=== PATIENT | male | born 1950 | race Caucasian/White ===

== ENCOUNTER 2017-07-14 05:43 | Day surgery (SDC) | payer MEDICARE, OTHER ==
[2017-07-14] MEDS ORDERED: DIPRIVAN 200 MG/20 ML IV ONE (05:44)
[2017-07-14] MEDS ORDERED: Ketamine HCl 50 MG/ML IV ONE (05:44)
[2017-07-14] MEDS ORDERED: Lactated Ringers 1,000 ML IV SCH (06:30)
[2017-07-14 08:36] VITALS: BP 141/95; PULSE 50; O2SAT 96
--- NOTE | 2017-07-14 09:08 | OP ---
SURGERY DATE/TIME: 07/14/2017 0717 PREOPERATIVE DIAGNOSIS: History of colon polyps. POSTOPERATIVE DIAGNOSIS: Sigmoid colon polyp and sigmoid diverticulosis. PROCEDURE: Colonoscopy with polypectomy. SURGEON: Dr. Sanon. ANESTHESIA: Medications were given by the anesthesia department. HISTORY: The patient is a 66 year old white male patient presenting now for endoscopic evaluation. He reports that he last had a colonoscopy five years ago. He did previously have colon polyps found and removed. The patient was appraised of the risks of the procedure including the risk of perforation, phlebitis, untoward reaction to medication, bleeding or missed lesions. The patient verbalized his understanding and desired to have the procedure performed. DESCRIPTION OF PROCEDURE: The patient was given the medications by the anesthesia department. He had continuous pulse oximetry, ECG monitoring, intermittent blood pressure monitoring and tidal CO2 monitoring during the examination. He was placed in left lateral decubitus position. A digital rectal examination was performed and revealed normal anal sphincter tone, no masses and an enlarged but smooth and otherwise normal prostate. The flexible Olympus pediatric colonoscope was used to intubate the rectum. A view of the colon was developed sequentially to the cecum. Upon insertion and withdrawal was noted sigmoid diverticulosis which was moderate in nature and small polyp measuring approximately 0.5 cm in size destroyed using cold biopsy technique. A larger polyp measuring approximately 1.5 cm that was pedunculated and removed with polypectomy snare and hot snare technique. The polyp was retrieved for pathologic evaluation. No other mucosal lesions being encountered the scope was removed from the patient who tolerated the procedure well and was sent back to OP recovery in good condition. The prep was noted to be fair to good.
== END 2017-07-14 08:58 | disposition home or self-care (01) ==
LOC: SDC 05:43
PROVIDERS: ATTEND Family Medicine
PROC: 0DBN8ZX Excision of Sigmoid Colon, Via Natural or Artificial Opening Endoscopic, Diagnostic (ICD-10-PCS; principal; 2017-07-14)
PROC: 0DBN8ZX Excision of Sigmoid Colon, Via Natural or Artificial Opening Endoscopic, Diagnostic (ICD-10-PCS; 2017-07-14)
DX: K63.5 Polyp of colon (principal); Z86.010 Personal history of colon polyps; K57.30 Diverticulosis of large intestine without perforation or abscess without bleeding; I10 Essential (primary) hypertension; E78.5 Hyperlipidemia, unspecified
CPT/HCPCS: 00810; 88305; J2704

== ENCOUNTER 2018-10-16 15:55 | Emergency (ER) | payer MEDICARE, OTHER ==
--- NOTE | 2018-10-16 16:16 | ERPHSYRPT ---
- History of Present Illness Time Seen by Provider: 10/16/18 16:05 Historian: patient Exam Limitations: no limitations Physician History: 68 y/o diabetic white male with htn presents with 1 week h/o intermittent substernal cp with exertional soa. cp is nonradiating. never had this before. denies abd pain. pt with h/o left upper ext dvt no longer on anticoag tx. pt has sister with h/o dvt Timing/Duration: week(s) (1) Quality: pressure Location: substernal Chest Pain Radiation: no radiation Severity of Pain-Max: mild Severity of Pain-Current: mild Modifying Factors: Improves With: exertion (usually resolves with rest) Associated Symptoms: denies symptoms Prior Chest Pain/Cardiac Workup: no prior chest pain Nitro Today/Relief: no nitro taken today Aspirin Treatment Today: 325 mg x 1 Allergies/Adverse Reactions: No Known Drug Allergies Allergy (Verified 10/16/18 16:18) Home Medications: Amlodipine Besylate/Benazepril [Lotrel 10-20 mg Capsule] 0 mg PO DAILY 05/31/12 [History] Aspirin EC 325 mg [Ecotrin 325 MG] 325 mg PO DAILY 05/31/12 [History] Multivitamin [Multivitamins] 1 tab PO DAILY 05/31/12 [History] Lisinopril 40 mg PO DAILY 10/16/18 [History] Sitagliptin Phos/Metformin HCl [Janumet 50-1,000 mg Tablet] 1 each PO BID [History] Tamsulosin HCl 0.4 mg [Flomax 0.4 MG] 0.4 mg PO DAILY 10/16/18 [History] Hx Tetanus, Diphtheria Vaccination/Date Given: No Hx Influenza Vaccination/Date Given: No Hx Pneumococcal Vaccination/Date Given: No - Review of Systems Constitutional: No Symptoms Eyes: No Symptoms Ears, Nose, & Throat: No Symptoms Respiratory: Dyspnea on Exertion (BARRERA) Cardiac: Chest Pain Abdominal/Gastrointestinal: No Symptoms Genitourinary Symptoms: No Symptoms Musculoskeletal: No Symptoms Skin: No Symptoms Neurological: No Symptoms Psychological: No Symptoms Endocrine: No Symptoms Hematologic/Lymphatic: No Symptoms Immunological/Allergic: No Symptoms All Other Systems: Reviewed and Negative - Past Medical History Pertinent Past Medical History: Yes Neurological History: No Pertinent History ENT History: Cataracts Cardiac History: Aneurysm, High Cholesterol, Hypertension Respiratory History: No Pertinent History Endocrine Medical History: Diabetes Type II Musculoskeletal History: Arthritis GI Medical History: Hepatitis History: No Pertinent History Psycho-Social History: No Pertinent History Male Reproductive Disorders: Prostate Problems Other Medical History: enlarged prostate, pt states he has a 3.5 cm abdominal aortic aneurysm. pt has history of hepatitis B. - Past Surgical History Past Surgical History: Yes Neuro Surgical History: No Pertinent History Cardiac: No Pertinent History Respiratory: No Pertinent History Gastrointestinal: Appendectomy, Hernia Repair Genitourinary: No Pertinent History Musculoskeletal: No Pertinent History Male Surgical History: No Pertinent History - Social History Smoking Status: Former smoker Exposure to second hand smoke: No Drug Use: none Patient Lives Alone: No - Nursing Vital Signs Nursing Vital Signs: Initial Vital Signs Temperature 98.3 F 10/16/18 15:59 Pulse Rate 63 10/16/18 15:59 Respiratory Rate 16 10/16/18 15:59 Blood Pressure 147/88 10/16/18 15:59 O2 Sat by Pulse Oximetry 95 10/16/18 15:59 Pain Scale Pain Intensity 0 - Physical Exam General Appearance: no apparent distress, alert Eye Exam: PERRL/EOMI Ears, Nose, Throat Exam: normal ENT inspection, moist mucous membranes Neck Exam: normal inspection, non-tender, supple, full range of motion Respiratory Exam: normal breath sounds, chest tenderness, lungs clear, airway intact, No respiratory distress Cardiovascular Exam: regular rate/rhythm, normal heart sounds, normal peripheral pulses Gastrointestinal/Abdomen Exam: soft, normal bowel sounds, No tenderness Rectal Exam: not done Back Exam: normal inspection, normal range of motion, No CVA tenderness, No vertebral tenderness Extremity Exam: normal inspection, normal range of motion, pelvis stable Neurologic Exam: alert, oriented x 3, cooperative, dredge captain II-XII nml as tested Skin Exam: normal color, warm, dry Lymphatic Exam: No adenopathy SpO2 Interpretation: normal O2 Delivery: Room Air - Course Nursing assessment & vital signs reviewed: Yes EKG Interpreted by Me: RATE (64), Sinus Rhythm, NORMAL AXIS, NORMAL INTERVALS, NORMAL QRS, Other (comparison ekg dated 12/08/17 no changes. ) Ordered Tests: Active Orders 24 hr Category Date Time Status Metal Furniture Assembler STAT Care 10/16/18 16:48 Active EKG-ER Only STAT Care 10/16/18 16:48 Active EKG-ER Only STAT Care 10/16/18 20:56 Active IV Insertion STAT Care 10/16/18 16:48 Active Pulse Oximetry (ED) STAT Care 10/16/18 16:48 Active CHEST 1 VIEW (PORTABLE) Stat Exams 10/16/18 16:48 Completed CHEST WITH CONTRAST [CT] Stat Exams 10/16/18 17:30 Taken CBC W DIFF Stat Lab 10/16/18 16:20 Completed CMP Stat Lab 10/16/18 16:20 Completed D-DIMER QUANTITATION Stat Lab 10/16/18 16:20 Completed Manual Differential NC Stat Lab 10/16/18 16:20 Completed NT PRO BNP Stat Lab 10/16/18 16:20 Completed TROPONIN Q3H Lab 10/16/18 16:20 Completed TROPONIN Q3H Lab 10/16/18 20:05 Completed TROPONIN Q3H Lab 10/16/18 23:00 Ordered TROPONIN Q3H Lab 10/17/18 02:00 Ordered TROPONIN Q3H Lab 10/17/18 05:00 Ordered Lab/Rad Data: Laboratory Result Diagrams 10/16/18 16:20 10/16/18 16:20 Laboratory Results 10/16/18 10/16/18 10/16/18 Range/Units 20:05 16:20 16:20 WBC (4.0-10.5) K/mm3 RBC (4.1-5.6) M/mm3 Hgb (12.5-18.0) gm/dl Hct (42-50) % MCV (78-100) fl MCH (26-32) pg MCHC (32-36) g/dl RDW (11.5-14.0) % Plt Count (150-450) K/mm3 MPV (6-9.5) fl Segmented Neutrophils (36.-66.) % Band Neutrophils (0.0-2.0) % Lymphocytes (Manual) (24-44) % Monocytes (Manual) (0.0-12.0) % Hypochromia Platelet Estimate (NORMAL) RBC Morphology Poikilocytosis Anisocytosis D-Dimer 526 H* (215-500) ng/mL Sodium (137-145) mmol/L Potassium (3.5-5.1) mmol/L Chloride (98-107) mmol/L Carbon Dioxide (22-30) mmol/L Anion Gap (5-15) MEQ/L BUN (9-20) mg/dL Creatinine (0.66-1.25) mg/dL Estimated GFR ML/MIN Glucose (74-106) mg/dL Calcium (8.4-10.2) mg/dL Total Bilirubin (0.2-1.3) mg/dL AST (17-59) U/L ALT (0-50) U/L Alkaline Phosphatase (38-126) U/L Troponin I 0.062 H* 0.039 H* (0.000-0.034) ng/mL NT-Pro-B Natriuret Pep (0-900) pg/mL Serum Total Protein (6.3-8.2) g/dL Albumin (3.5-5.0) g/dL 10/16/18 10/16/18 Range/Units 16:20 16:20 WBC 8.3 (4.0-10.5) K/mm3 RBC 5.06 (4.1-5.6) M/mm3 Hgb 14.8 (12.5-18.0) gm/dl Hct 45.3 (42-50) % MCV 89.5 (78-100) fl MCH 29.2 (26-32) pg MCHC 32.7 (32-36) g/dl RDW 13.9 (11.5-14.0) % Plt Count 200 (150-450) K/mm3 MPV 11.2 H (6-9.5) fl Segmented Neutrophils 74 H (36.-66.) % Band Neutrophils 3 H (0.0-2.0) % Lymphocytes (Manual) 21 L (24-44) % Monocytes (Manual) 2 (0.0-12.0) % Hypochromia 1+ Platelet Estimate NORMAL (NORMAL) RBC Morphology ABNORMAL Poikilocytosis 1+ Anisocytosis 2+ D-Dimer (215-500) ng/mL Sodium 136 L (137-145) mmol/L Potassium 3.9 (3.5-5.1) mmol/L Chloride 101 (98-107) mmol/L Carbon Dioxide 24 (22-30) mmol/L Anion Gap 15.0 (5-15) MEQ/L BUN 20 (9-20) mg/dL Creatinine 1.08 (0.66-1.25) mg/dL Estimated GFR > 60.0 ML/MIN Glucose 157 H (74-106) mg/dL Calcium 10.0 (8.4-10.2) mg/dL Total Bilirubin 0.50 (0.2-1.3) mg/dL AST 19 (17-59) U/L ALT 29 (0-50) U/L Alkaline Phosphatase 69 (38-126) U/L Troponin I (0.000-0.034) ng/mL NT-Pro-B Natriuret Pep 24.3 (0-900) pg/mL Serum Total Protein 8.2 (6.3-8.2) g/dL Albumin 4.7 (3.5-5.0) g/dL - Progress Progress: improved, re-examined Air Movement: good Progress Note: 10/16/18 20:44 no cp. cta chest- no pulm emboli 10/16/18 20:58 no cp. rising troponin 0.039 to 0.062. i reveiwed pt hx, condition, ekg and radiographic results with dr. girard ed at [facility] ED. he accepts pt in transfer to ED 10/16/18 21:01 repeat ekg -no change from prior ekg. hr 64 nsr, normal axis, no acute st segment changes Blood Culture(s) Obtained: No Antibiotics given: No Counseled pt/family regarding: lab results, diagnosis, need for follow-up, rad results - Departure Time of Disposition: 21:07 Departure Disposition: Transfer Clinical Impression: Non-STEMI (non-ST elevated myocardial infarction), Chest pain, Elevated troponin Condition: Stable Critical Care Time: Yes Critical Care Time(excluding separately billable procedures): 30-74 minutes Referrals: DAMION PUENTES NP [Primary Care Provider] -
[2018-10-16 17:05] LABS: Hematocrit 45.3 % (42-50); Hemoglobin 14.8 gm/dl (12.5-18.0); Mean Cell Volume 89.5 fl (78-100); Mean Corpuscular Hemoglobin 29.2 pg (26-32); Mean Corpuscular Hgb Concent. 32.7 g/dl (32-36); Mean Platelet Volume 11.2 fl (6-9.5); Platelet Count 200 K/mm3 (150-450); Red Blood Count 5.06 M/mm3 (4.1-5.6); Red Cell Distribution Width 13.9 % (11.5-14.0); White Blood Count 8.3 K/mm3 (4.0-10.5)
--- NOTE | 2018-10-16 17:08 | XRAY ---
Indication: Chest pain with exertion 1-2 weeks. Comparison: December 09, 2015. Portable chest demonstrates normal heart and lungs. Bony thorax intact again with mild degenerative changes and multiple old right rib fractures. No new/acute findings.
[2018-10-16 17:20] LABS: ALBUMIN 4.7 g/dL (3.5-5.0); ALKALINE PHOSPHATASE 69 U/L (38-126); BLOOD UREA NITROGEN 20 mg/dL (9-20); CHLORIDE 101 mmol/L (98-107); Carbon Dioxide 24 mmol/L (22-30); Creatinine 1 1.08 mg/dL (0.66-1.25); Glucose 157 mg/dL (74-106); NT PRO BNP 24.3 pg/mL (0-900); Potassium 3.9 mmol/L (3.5-5.1); SGOT/AST 19 U/L (17-59); SGPT/ALT 29 U/L (0-50); SODIUM 136 mmol/L (137-145); Total Protein 8.2 g/dL (6.3-8.2)
[2018-10-16 19:23] LABS: BAND 3 % (0.0-2.0); Lymphocytes 21 % (24-44); Monocyte 2 % (0.0-12.0); Neutrophils 74 % (36.-66.); Platelet Estimate NORMAL (NORMAL); Total Cells Counted 100
[2018-10-16 19:24] LABS: ANISOCYTOSIS 2+; Hypochromia 1+; Poikilocytosis 1+
[2018-10-16 21:26] VITALS: BP 146/90; PULSE 72; O2SAT 96
--- NOTE | 2018-10-17 08:42 | XRAY ---
Indication: Dyspnea on exertion. Elevated d-dimer. Multiple contiguous axial images obtained through the chest using 100 cc Isovue 300 contrast and PE protocol. Comparison: CT chest without contrast December 09, 2015. There is satisfactory opacification of the pulmonary arteries to include the lobar and segmental branches. No filling defect or pulmonary embolus. Heart is not enlarged. Aorta is normal in course and caliber. Stable tiny mediastinal and left hilar calcified nodes. No pathologic mediastinal/hilar lymphadenopathy. Examination of the lung parenchyma again demonstrates mild bilateral dependent atelectasis and minimal bibasilar fibrosis/scarring. No suspicious pulmonary mass, infiltrate, or effusion. Bony thorax again demonstrates flowing osteophytes throughout the spine and interval healed right rib fractures. Limited upper abdomen again demonstrates fatty liver. Impression: 1. Negative pulmonary embolus. 2. No new/acute cardiopulmonary abnormalities. 3. Incidental old right rib fractures, fatty liver, and evidence for old granulomatous disease. CT DI 23.69
== END 2018-10-16 21:36 | disposition short-term general hospital (02) ==
LOC: ED 15:55
DX: I21.4 Non-ST elevation (NSTEMI) myocardial infarction (principal); R07.9 Chest pain, unspecified; R74.8 Abnormal levels of other serum enzymes; Z79.899 Other long term (current) drug therapy
CPT/HCPCS: 36000; 36415; 71045; 71260; 80053; 83880; 84484; 85025; 85379; 93005; 93041; 99285; 99291

== ENCOUNTER 2019-01-22 04:50 | Emergency (ER) | payer MEDICARE, OTHER ==
[2019-01-22] MEDS ORDERED: BABY ASPIRIN 81 MG CHEW PO ONE (05:06)
--- NOTE | 2019-01-22 05:14 | ERPHSYRPT ---
- History of Present Illness Time Seen by Provider: 01/22/19 05:06 Historian: patient Exam Limitations: no limitations Physician History: 68-year-old white male arrives with complaint of aching of his left arm since yesterday and he states he woke up this morning with chest discomfort since 2: 00 this morning he states he's had some shortness of breath denies nausea Patient does have a history of recent non-ST wave [place] apparently has had a 5 vessel bypass in September Past medical history includes cataracts 3.5 cm abdominal aneurysm, hyperlipidemia, high blood pressure, diabetes type 2, arthritis, hepatitis B, prostate problems, DVT, Atherosclerotic coronary artery disease, myocardial infarction. Past surgical history includes appendectomy, hernia repair, CABG Social history former smoker patient denies alcohol or illicit drug use. Timing/Duration: other (aching left arm since yesterday noon chest discomfort since waking up at 2 AM) Activities at Onset: none Quality: aching (aching left arm), other (uncomfortable left chest) Location: other (left anterior chest feels like congested) Chest Pain Radiation: arm Severity of Pain-Max: moderate (left arm) Severity of Pain-Current: mild (3/10) Modifying Factors: Improves With: nothing Associated Symptoms: No nausea, No vomiting, No palpitations, No heartburn, No abdominal pain, No shortness of breath, No cough, No hurts to breathe Aspirin Treatment Today: 81 mg x 4, provided by ED Allergies/Adverse Reactions: No Known Drug Allergies Allergy (Verified 10/16/18 16:18) Home Medications: Lisinopril 40 mg PO DAILY 10/16/18 [History] Sitagliptin Phos/Metformin HCl [Janumet 50-1,000 mg Tablet] 50 - 1,000 mg PO BID 10/16/18 [History] Tamsulosin HCl 0.4 mg [Flomax 0.4 MG] 0.4 mg PO HS 10/16/18 [History] Amiodarone HCl 200 mg [Cordarone 200 MG] 200 mg PO DAILY 01/22/19 [History ] Aspirin 81 gm Chew [Baby Aspirin 81 mg Chew] 81 mg PO DAILY 01/22/19 [ History] Atorvastatin Calcium 80 mg PO HS 01/22/19 [History] Carvedilol 12.5 mg [Coreg 12.5 mg] 12.5 mg PO BID 01/22/19 [History] Clopidogrel Bisulfate [Clopidogrel] 75 mg PO DAILY 01/22/19 [History] Isosorbide Dinitrate 30 mg PO DAILY 01/22/19 [History] Hx Tetanus, Diphtheria Vaccination/Date Given: No Hx Influenza Vaccination/Date Given: No Hx Pneumococcal Vaccination/Date Given: No - Review of Systems Constitutional: No Fever, No Chills Eyes: No Symptoms Ears, Nose, & Throat: No Symptoms Respiratory: Dyspnea Cardiac: Chest Pain, Other (left arm pain (aching)) Abdominal/Gastrointestinal: No Abdominal Pain, No Nausea, No Vomiting, No Diarrhea Genitourinary Symptoms: No Dysuria Musculoskeletal: No Back Pain, No Neck Pain Skin: No Rash Neurological: No Dizziness, No Focal Weakness, No Sensory Changes Psychological: No Symptoms Endocrine: No Symptoms All Other Systems: Reviewed and Negative - Past Medical History Pertinent Past Medical History: Yes Neurological History: No Pertinent History ENT History: Cataracts Cardiac History: Aneurysm, High Cholesterol, Hypertension Respiratory History: No Pertinent History Endocrine Medical History: Diabetes Type II Musculoskeletal History: Arthritis GI Medical History: Hepatitis History: No Pertinent History Psycho-Social History: No Pertinent History Male Reproductive Disorders: Prostate Problems Other Medical History: enlarged prostate, pt states he has a 3.5 cm abdominal aortic aneurysm. pt has history of hepatitis B. - Past Surgical History Past Surgical History: Yes Neuro Surgical History: No Pertinent History Cardiac: No Pertinent History Respiratory: No Pertinent History Gastrointestinal: Appendectomy, Hernia Repair Genitourinary: No Pertinent History Musculoskeletal: No Pertinent History Male Surgical History: No Pertinent History - Social History Smoking Status: Former smoker Exposure to second hand smoke: No Drug Use: none Patient Lives Alone: No - Nursing Vital Signs Nursing Vital Signs: Initial Vital Signs Temperature 97.9 F 01/22/19 05:04 Pulse Rate 53 L 01/22/19 05:04 Respiratory Rate 24 01/22/19 05:04 Blood Pressure 120/70 01/22/19 05:04 O2 Sat by Pulse Oximetry 92 L 01/22/19 05:04 Pain Scale Pain Intensity 0 - Physical Exam General Appearance: mild distress, alert Eye Exam: PERRL/EOMI, eyes nml inspection Ears, Nose, Throat Exam: normal ENT inspection, moist mucous membranes Neck Exam: normal inspection, non-tender, supple, full range of motion Respiratory Exam: normal breath sounds, lungs clear, No respiratory distress Cardiovascular Exam: regular rate/rhythm, normal heart sounds, capillary refill <2 sec Gastrointestinal/Abdomen Exam: soft, No tenderness, No mass Back Exam: normal inspection, No CVA tenderness, No vertebral tenderness Extremity Exam: normal inspection, normal range of motion Neurologic Exam: alert, oriented x 3, cooperative, dough sheeter II-XII nml as tested, normal mood/affect, sensation nml, No motor deficits Skin Exam: normal color, warm, dry SpO2 Interpretation: normal (92%) SpO2: 92 - Course Nursing assessment & vital signs reviewed: Yes EKG Interpreted by Me: RATE (53 bpm), Sinus Rhythm, NORMAL AXIS, Other (EKG: Sinus rhythm, 64 beats per minute, mild amount of artifact, normal axis, T-wave inversions leads 1 aVL V5 V6) - Radiology Exams Chest X-ray Interpretation: Interpreted by me (no acute disease process noted( mild increased interstitial lung markings)) Ordered Tests: Active Orders 24 hr Category Date Time Status Hair Dresser STAT Care 01/22/19 05:07 Active EKG-ER Only STAT Care 01/22/19 05:06 Active IV Insertion STAT Care 01/22/19 05:06 Active Pulse Oximetry (ED) STAT Care 01/22/19 05:06 Active CHEST 1 VIEW (PORTABLE) Stat Exams 01/22/19 05:07 Completed AMYLASE Stat Lab 01/22/19 05:19 Completed CBC W DIFF Stat Lab 01/22/19 05:19 Completed CMP Stat Lab 01/22/19 05:19 Completed D-DIMER QUANTITATION Stat Lab 01/22/19 05:19 Completed LIPASE Stat Lab 01/22/19 05:19 Completed NT PRO BNP Stat Lab 01/22/19 05:53 Completed PROTIME WITH INR Stat Lab 01/22/19 05:19 Completed PTT Stat Lab 01/22/19 05:19 Completed TROPONIN Q3H Lab 01/22/19 05:19 Completed Medication Summary Discontinued Medications Generic Name Dose Route Start Last Admin Trade Name Freq PRN Reason Stop Dose Admin Aspirin 324 mg 01/22/19 05:06 01/22/19 05:56 Baby Aspirin 81 Mg Chew PO 01/22/19 05:07 324 mg STAT ONE Administration Sodium Chloride 1,000 mls @ 50 mls/hr 01/22/19 05:15 01/22/19 05:40 Sodium Chloride 0.9% 1000 Ml IV 02/21/19 05:14 50 mls/hr .Q20H DALLIN Administration Sodium Chloride Confirm 01/22/19 05:19 Sodium Chloride 0.9% 1000 Ml Administered 01/22/19 05:20 Dose 1,000 mls @ ud .ROUTE .STK-MED ONE Nitroglycerin 0.4 mg 01/22/19 05:15 01/22/19 06:00 Nitrostat 0.4 Mg (Ed) SL 01/22/19 05:16 Not Given STAT ONE Lab/Rad Data: Laboratory Result Diagrams 01/22/19 05:19 01/22/19 05:19 Laboratory Results 01/22/19 01/22/19 01/22/19 Range/Units 05:53 05:19 05:19 WBC (4.0-10.5) K/mm3 RBC (4.1-5.6) M/mm3 Hgb (12.5-18.0) gm/dl Hct (42-50) % MCV (78-100) fl MCH (26-32) pg MCHC (32-36) g/dl RDW (11.5-14.0) % Plt Count (150-450) K/mm3 MPV (6-9.5) fl Gran % (36.0-66.0) % Eos # (Auto) (0-0.5) Absolute Lymphs (auto) (1.0-4.6) Absolute Monos (auto) (0.0-1.3) Lymphocytes % (24.0-44.0) % Monocytes % (0.0-12.0) % Eosinophils % (0.00-5.0) % Basophils % (0.0-0.4) % Absolute Granulocytes (1.4-6.9) Basophils # (0-0.4) PT 13.5 H (8.83-12.87) SECONDS INR 1.19 (0.8-3.0) APTT 34.7 (24.1-36.1) SECONDS D-Dimer 1007 H* (215-500) ng/mL Sodium (137-145) mmol/L Potassium (3.5-5.1) mmol/L Chloride (98-107) mmol/L Carbon Dioxide (22-30) mmol/L Anion Gap (5-15) MEQ/L BUN (9-20) mg/dL Creatinine (0.66-1.25) mg/dL Estimated GFR ML/MIN Glucose (74-106) mg/dL Calcium (8.4-10.2) mg/dL Total Bilirubin (0.2-1.3) mg/dL AST (17-59) U/L ALT (0-50) U/L Alkaline Phosphatase (38-126) U/L Troponin I 0.575 H* (0.000-0.034) ng/mL NT-Pro-B Natriuret Pep 1330 H (0-900) pg/mL Serum Total Protein (6.3-8.2) g/dL Albumin (3.5-5.0) g/dL Amylase (30-110) U/L Lipase (23-300) U/L 01/22/19 01/22/19 Range/Units 05:19 05:19 WBC 9.3 (4.0-10.5) K/mm3 RBC 4.53 (4.1-5.6) M/mm3 Hgb 12.2 L (12.5-18.0) gm/dl Hct 39.1 L (42-50) % MCV 86.3 (78-100) fl MCH 26.9 (26-32) pg MCHC 31.2 L (32-36) g/dl RDW 16.6 H (11.5-14.0) % Plt Count 199 (150-450) K/mm3 MPV 11.2 H (6-9.5) fl Gran % 80.6 H (36.0-66.0) % Eos # (Auto) 0.17 (0-0.5) Absolute Lymphs (auto) 1.00 (1.0-4.6) Absolute Monos (auto) 0.61 (0.0-1.3) Lymphocytes % 10.8 L (24.0-44.0) % Monocytes % 6.6 (0.0-12.0) % Eosinophils % 1.8 (0.00-5.0) % Basophils % 0.2 (0.0-0.4) % Absolute Granulocytes 7.50 H (1.4-6.9) Basophils # 0.02 (0-0.4) PT (8.83-12.87) SECONDS INR (0.8-3.0) APTT (24.1-36.1) SECONDS D-Dimer (215-500) ng/mL Sodium 139 (137-145) mmol/L Potassium 4.2 (3.5-5.1) mmol/L Chloride 102 (98-107) mmol/L Carbon Dioxide 25 (22-30) mmol/L Anion Gap 15.7 H (5-15) MEQ/L BUN 13 (9-20) mg/dL Creatinine 0.84 (0.66-1.25) mg/dL Estimated GFR > 60.0 ML/MIN Glucose 172 H (74-106) mg/dL Calcium 9.4 (8.4-10.2) mg/dL Total Bilirubin 0.60 (0.2-1.3) mg/dL AST 28 (17-59) U/L ALT 32 (0-50) U/L Alkaline Phosphatase 66 (38-126) U/L Troponin I (0.000-0.034) ng/mL NT-Pro-B Natriuret Pep (0-900) pg/mL Serum Total Protein 7.6 (6.3-8.2) g/dL Albumin 4.3 (3.5-5.0) g/dL Amylase 94 (30-110) U/L Lipase 106 (23-300) U/L - Progress Progress: improved Air Movement: fair Progress Note: 01/22/19 05:18 Notified by patient's nurse that patient took carvedilol 12.5 mg at 3:30 and at 4:00 he apparently took second one by accident. And blood pressure is 85/42 Patient started on normal saline initially had been written for 50 per hour will bolus. Nitroglycerin initially ordered was canceled. 01/22/19 06:04 The patient's blood pressure actually went down to 80/45 however he was sitting up we have the patient way down he was started normal saline bolus right now blood pressure 92/58 Patient was given aspirin 325 mg orally. Patient apparently had taken lisinopril 40 mg as well as Coreg 12.5 mg x2 prior to arrival. Patient's EKG remarkable for sinus rhythm with a small amount of artifact 53 beats per minute T-wave inversions in lead 1 and L. V5 and V6 as compared to previous. Patient's troponin elevated at 0.575 patient's d-dimer elevated at 1007 Patient's CBC essentially normal white count 9.3 hemoglobin 12.2 hematocrit 39.1 platelets 199 Chemistries sodium 139 potassium 4.2 chloride 102 bicarbonate 25 BUN 13 creatinine 0.84 glucose was 172 Chest x-ray mild increased interstitial markings possibly old I discussed the case with Dr. Ledesma at [facility] Will transfer patient Diagnoses 1 chest pain. 2 non-ST-T wave myocardial infarction. 3 elevated d-dimer. 4. Hypotension. 01/22/19 06:13 01/22/19 06:15 Patient had taken plavix 75 mg orally this am at home. - Departure Departure Disposition: Transfer ([facility]) Clinical Impression: Non-STEMI (non-ST elevated myocardial infarction), Elevated d-dimer Chest pain Qualifiers: Chest pain type: chest pain due to myocardial ischemia Ischemic chest pain type : unstable angina pectoris Qualified Code(s): I20.0 - Unstable angina Hypotension Qualifiers: Hypotension type: unspecified hypotension type Qualified Code(s): I95.9 - Hypotension, unspecified Condition: Fair Critical Care Time: No Referrals: DAMION PUENTES NP [Primary Care Provider] -
[2019-01-22] MEDS ORDERED: Nitrostat 0.4 MG (ED) SL ONE (05:15)
[2019-01-22] MEDS ORDERED: Sodium Chloride 0.9% 1000 ML 1,000 ML IV SCH (05:15)
[2019-01-22 05:19] LABS: BASOPHIL % 0.2 % (0.0-0.4); Basophil (Absolute #) 0.02 (0-0.4); Eosinophil % 1.8 % (0.00-5.0); Eosinophil (Absolute #) 0.17 (0-0.5); Granulocytes % 80.6 % (36.0-66.0); Hematocrit 39.1 % (42-50); Hemoglobin 12.2 gm/dl (12.5-18.0); Lymphocytes % 10.8 % (24.0-44.0); Mean Cell Volume 86.3 fl (78-100); Mean Corpuscular Hemoglobin 26.9 pg (26-32); Mean Corpuscular Hgb Concent. 31.2 g/dl (32-36); Mean Platelet Volume 11.2 fl (6-9.5); Monocyte (Absolute #) 0.61 (0.0-1.3); Monocytes % 6.6 % (0.0-12.0); Platelet Count 199 K/mm3 (150-450); Red Blood Count 4.53 M/mm3 (4.1-5.6); Red Cell Distribution Width 16.6 % (11.5-14.0); White Blood Count 9.3 K/mm3 (4.0-10.5)
[2019-01-22] MEDS ORDERED: Sodium Chloride 0.9% 1000 ML 1,000 ML ONE (05:19)
[2019-01-22 05:27] LABS: INR 1.19 (0.8-3.0); PROTIME 13.5 SECONDS (8.83-12.87)
[2019-01-22 05:30] LABS: PTT 34.7 SECONDS (24.1-36.1)
[2019-01-22 05:31] LABS: ALBUMIN 4.3 g/dL (3.5-5.0); ALKALINE PHOSPHATASE 66 U/L (38-126); AMYLASE 94 U/L (30-110); ANION GAP 15.7 MEQ/L (5-15); BLOOD UREA NITROGEN 13 mg/dL (9-20); CHLORIDE 102 mmol/L (98-107); Calcium 9.4 mg/dL (8.4-10.2); Carbon Dioxide 25 mmol/L (22-30); Creatinine 1 0.84 mg/dL (0.66-1.25); Glucose 172 mg/dL (74-106); Potassium 4.2 mmol/L (3.5-5.1); SGOT/AST 28 U/L (17-59); SGPT/ALT 32 U/L (0-50); SODIUM 139 mmol/L (137-145); Total Protein 7.6 g/dL (6.3-8.2)
[2019-01-22 06:02] VITALS: BP 92/58; PULSE 51
[2019-01-22 06:07] VITALS: O2SAT 92
--- NOTE | 2019-01-22 08:48 | XRAY ---
Indication: Chest pain. Comparison: October 16, 2018. Portable chest less inflated with now mild interstitial edema. No focal infiltrate, consolidation, or large effusion. Heart is not enlarged for AP portable technique with interval CABG surgery. Bony thorax again demonstrates mild degenerative changes and multiple old right rib fractures. Impression: Mild interstitial edema without cardiomegaly.
== END 2019-01-22 06:30 | disposition short-term general hospital (02) ==
LOC: ED 04:50
DX: I21.4 Non-ST elevation (NSTEMI) myocardial infarction (principal); I20.0 Unstable angina; I95.9 Hypotension, unspecified; I10 Essential (primary) hypertension; E11.9 Type 2 diabetes mellitus without complications; K75.9 Inflammatory liver disease, unspecified; M19.90 Unspecified osteoarthritis, unspecified site; E78.00 Pure hypercholesterolemia, unspecified
CPT/HCPCS: 36000; 36415; 71045; 80053; 82150; 83690; 83880; 84484; 85025; 85379; 85610; 85730; 93005; 93041; 94760; 96360; 99285; A9270-GY

== ENCOUNTER 2024-03-12 06:53 | Day surgery (SDC) | payer MEDICARE ==
[2024-03-12] MEDS ORDERED: Epinephrine Preservative Free 1 MG/ML IJ ONE (06:54)
[2024-03-12] MEDS ORDERED: TRIAMCINOLONE 15 MG/ML INJ INTRAOP ONE (07:00)
[2024-03-12] MEDS ORDERED: TETRACAINE 0.5% STERI-UNIT SOL OP ONE (07:00)
[2024-03-12] MEDS ORDERED: BETADINE 5% OPHTHALMIC 30 ML OP ONE (07:00)
[2024-03-12] MEDS ORDERED: MOXIFLOXACIN 4 MG/0.8 ML VIAL IO ONE (07:00)
[2024-03-12] MEDS ORDERED: Lactated Ringers 1,000 ML IV ONE ×2 (07:21→07:23)
[2024-03-12] MEDS: Lactated Ringers 1,000 ML IV SCH (07:27)
[2024-03-12 07:29] VITALS: RESP 18
[2024-03-12] MEDS: TETRACAINE 0.5% STERI-UNIT SOL OP ONE (07:33)
[2024-03-12] MEDS: Ak-Dilate OPHTHALMIC*** 1.065 ML, Cyclogyl 1% OPHTH SOL 1.065 ML, GATIFLOXACIN 0.5% OPH... OP ONE (07:37)
[2024-03-12] MEDS ORDERED: DEXMEDETOMIDINE 80 MCG/20ML-NS IV ONE (08:51)
[2024-03-12] MEDS ORDERED: DIPRIVAN 200 MG/20 ML IV ONE (08:51)
[2024-03-12] MEDS ORDERED: Zofran 4 MG/2 ML VIAL IV PRN (09:00)
[2024-03-12 09:33] VITALS: TEMP 98
[2024-03-12] MEDS: ACETAZOLAMIDE 250 MG TABLET PO ONE (09:43)
[2024-03-12 09:45] VITALS: BP 121/72; PULSE 55; O2SAT 98
== END 2024-03-12 09:55 | disposition home or self-care (01) ==
LOC: SDC 06:53
PROVIDERS: ATTEND Ophthalmology
DX: H25.812 Combined forms of age-related cataract, left eye (principal); E11.9 Type 2 diabetes mellitus without complications
CPT/HCPCS: 66982; 82947; 99100; C1780; J0171; J2704; A9270-GY